=== PATIENT | male | born 1985 | race Caucasian/White ===

== ENCOUNTER → 2023-01-02 | Outpatient (CLI) | payer BC, SELFPAY ==
[2023-01-02 22:17] LABS: Absolute Lymphocyte Count 2.11 X10^3/uL (0.83-4.51); Absolute Neutrophil Count 4.1 X10^3/uL (2.0-7.7); Basophil# 0.07 X10^3/uL; Eosinophil# 0.15 X10^3/uL; Eosinophils% 2.1 % (0-5); Hematocrit 44.6 % (40-54); Hemoglobin 14.9 g/dL (13.0-16.5); Lymphocyte # 2.11 X10^3/ul (0.83-4.51); Lymphocyte % 29.8 % (19-41); Mean Corp Hgb Conc 33.4 g/dL (32-36); Mean Corpuscular Volume 89.9 fL (80-94); Mean Platelet Vol. 10.2 fl (6.2-12.0); Monocyte# 0.63 X10^3/uL; Monocyte% 8.9 % (0-10); NRBC Flagged by Analyzer 0 % (0-5); Neutrophil # 4.11 X10^3/uL (2.7-7.7); Neutrophil % 57.9 % (47-70); Platelet Count 276 K/mm3 (150-450); RBC Distribution Width SD 38.7 fl (35.1-43.9); Red Blood Count 4.96 M/mm3 (4.6-6.2); White Blood Count 7.1 K/mm3 (4.4-11.0)
[2023-01-02 22:40] LABS: ALB/GLOB Ratio 1.3 RATIO (0.9-2.4); AST(SGOT) 25 U/L (15-37); Alanine Aminotransfer ALT/SGPT 28 U/L (16-61); Albumin, Serum 4.2 g/dL (3.2-5.0); Alkaline Phosphatase 76 U/L (45-117); Anion Gap 7 (5-15); BUN 24 mg/dL (7-18); BUN/Creat Ratio 23.3 RATIO (10-20); Calcium,Total 9.1 mg/dL (8.5-10.1); Chloride 106 mmol/L (98-107); Cholesterol 193 mg/dL (200); Creatinine, Serum 1.03 mg/dL (0.70-1.30); EST Glomerular Filtration Rate 87 mL/min (>60); Est Glom Filt Rate - Afr Amer 105 mL/min (>60); Globulin 3.3 g/dL (2.2-4.2); Glucose 82 mg/dL (74-106); High Density Lipoprotein 78 mg/dL; Potassium 3.7 mmol/L (3.5-5.1); Protein, Total 7.5 g/dL (6.4-8.2); Sodium Level 139 mmol/L (136-145); Thyroid Stim Hormone (TSH) 1.41 uIU/mL (0.358-3.74); Triglycerides 60 mg/dL; Very Low Density Lipoprotein 12 mg/dL (5-40)
[2023-01-02 22:42] LABS: Hemoglobin A1c 5.3 % (3.8-5.6)
== END | disposition home or self-care (01) ==
PROVIDERS: Visit Provider Nurse Practitioner
DX: E78.5 Hyperlipidemia, unspecified (principal); R43.8 Other disturbances of smell and taste; R73.9 Hyperglycemia, unspecified
CPT/HCPCS: 80053; 80061; 83036; 84443; 85025

== ENCOUNTER → 2024-12-23 | Outpatient (CLI) | payer BC, SELFPAY ==
--- OUTSIDE RECORDS SUMMARY | 2024-12-23 23:16 | XMS RPT_ITS | CCD ---
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 Role Phone Unavailable Primary Care Provider Leroy Flores Primary Care Provider BEENA HADDAD Attending Unavailable BEENA HADDAD Referring Unavailable LEROY TEJEDA Primary Care Unavailable LEROY TEJEDA Primary Care Unavailable BEENA HADDAD Attending Unavailable Donte PEDRAZA, Mary Attending Unavailable Bozena Heath DO Primary Care Provider BOZENA HEATH Primary Care BOZENA Torres Attending UnavailBOZENA Fleming Primary Care Unavailharis reis Medications Current Medications Medication Drug Class(es) Dates Sig (Normalized) Sig (Original) dexamethasone 6 mg oral tablet (3 sources) Corticosteroid Start: 12-24-2021 take 1 tablet by mouth three times daily dexAMETHasone (Decadron) 6 MG tablet Take 6 mg by mouth 3 times daily. 0 12/24/2021 Active tiZANidine 2 mg oral tablet (1 source) Central alpha-2 Adrenergic Agonist Start: 03-06-2023 End: 04-24-2023 take 1 tablet by mouth twice daily as needed for muscle spasms tiZANidine (Zanaflex) 2 mg tablet Take 1 tablet (2 mg) by mouth 2 times a day as needed for muscle spasms. 0 03/06/2023 04/24/2023 Discontinued (Med List Cleanup) Completed/Discontinued Medications Medication Drug Class(es) Dates Sig (Normalized) Sig (Original) ascorbic acid 500 mg oral tablet (1 source) Vitamin C Start: 09-28-2014 take 1 tablet by mouth once daily ascorbic acid (VITAMIN C) 500 mg tablet Take 1 tablet by mouth once daily. 0 09/28/2014 Active Comment on above: Take 1 tablet by colette once daily. Problems Active Problems Problem Classification Problem Date Documented Da te Episodic/Chronic Administrative/social admission (1 source) Patient encounter status; Translations: [Persons encountering health services in other specified circumstances] 04-23-2023 Episodic Disorders of lipid metabolism (1 source) Hyperlipidemia, unspecified; Translations: [Hyperlipidemia, unspecified] Onset: 01-08-2023 Chronic Other nervous system disorders (2 sources) Other chronic pain; Translations: [Other chronic pain] Onset: 04-24-2023 Chronic Other nutritional; endocrine; and metabolic disorders (1 source) Overweight in adulthood with body mass index of 25 or more but less than 30; Translations: [Overweight] 04-24-2023 Episodic Spondylosis; intervertebral disc disorders; other back problems (9 sources) Radicular pain; Translations: [Radiculopathy, site unspecified] Onset: 10-03-2014 10-03-2014 Episodic Unclassified (2 sources) Low back pain, unspecified; Translations: [Low back pain, unspecified] Onset: 12-03-2022 Past or Other Problems Problem Classification Problem Date Documented Da te Episodic/Chronic Other acquired deformities (3 sources) Spondylolysis; Translations: [Spondylolysis, lumbar region] Onset: 10-03-2014 07-16-2021 Episodic Other liver diseases (3 sources) Finding of creatine kinase level; Translations: [Abnormal levels of other serum enzymes] Onset: 10-03-2014 10-03-2014 Episodic Other screening for suspected conditions (not mental disorders or infectious disease) (3 sources) Decreased testosterone level ; Translations: [Other specified abnormal findings of blood chemistry] Onset: 12-07-2014 07-16-2021 Episodic Otitis media and related conditions (3 sources) Dysfunction of eustachian tube; Translations: [Unspecified Eustachian tube disorder, unspecified ear] Onset: 04-24-2023 04-24-2023 Episodic Unclassified (2 sources) Low back pain, unspecified; Translations: [Low back pain, unspecified] Onset: 12-03-2022 Results Test Name Value Interpretation Reference Range Facil ity CBC panel Auto (Bld)on 04-24 Erythrocyte distribution width (RBC) [Ratio] 12.8 % Normal 11.5-14.5 [facility] Comment on above: Performed By: #### 5 8410-2 #### YUDITH Mulligan ([id number]) [facility] ([facility]) [id number] [place] [address] 42059 Hematocrit (Bld) [Volume fraction] 47.0 % Normal 41.0-52.0 [facility] Comment on above: Performed By: #### 5 8410-2 #### YUDITH Mulligan ([id number]) [facility] ([facility]) [id number] [place] [address] 69105 Hemoglobin (Bld) [Mass/Vol] 14.9 g/dL Normal 13.5-17.5 [facility] Comment on above: Performed By: #### 5 8410-2 #### YUDITH Mulligan ([id number]) [facility] ([facility]) [address] [place] [address] 10604 MCH (RBC) [Entitic mass] 29.3 pg Normal 26.0-34.0 [facility] Comment on above: Performed By: #### 5 8410-2 #### YUDITH Mulligan ([id number]) [facility] ([facility]) [address] [place] [address] 76673 MCHC (RBC) [Mass/Vol] 31.7 g/dL Low 32.0-36.0 [facility] Comment on above: Performed By: #### 5 8410-2 #### YUDITH Mulligan ([id number]) [facility] ([facility]) [address] [place] [address] 36642 MCV (RBC) [Entitic vol] 93 fL Normal 80-100 [facility] Comment on above: Performed By: #### 5 8410-2 #### YUDITH Mulligan ([id number]) [facility] ([facility]) [address] [place] [address] 10186 Nucleated RBC/100 WBC (Bld) [Ratio] 0.0 /100 WBCs Normal 0.0-0.0 [facility] Comment on above: Performed By: #### 5 8410-2 #### YUDITH Mulligan ([id number]) [facility] ([facility]) [address] [place] [address] Platelet mean volume (Bld) [Entitic vol] 10.2 fL Normal 7.5-11.5 [facility] Comment on above: Performed By: #### 5 8410-2 #### YUDITH Mulligan ([id number]) [facility] ([facility]) [address] [place] [address] 62151 Platelets (Bld) [#/Vol] 236 x10*3/uL Normal 150-450 [facility] Comment on above: Performed By: #### 5 8410-2 #### YUDITH Mulligan ([id number]) [facility] ([facility]) [address] [place] [address] 23406 RBC (Bld) [#/Vol] 5.08 x10*6/uL Normal 4.50-5.90 [facility] Comment on above: Performed By: #### 5 8410-2 #### YUDITH Mulligan ([id number]) [facility] ([facility]) [address] [place] [address] 89022 WBC (Bld) [#/Vol] 5.2 x10*3/uL Normal 4.4-11.3 [facility] Comment on above: Performed By: #### 5 8410-2 #### YUDITH Mulligan ([id number]) [facility] ([facility]) [address] [place] [address] 37613 Comprehensive metabolic 2000 panelon 04-24-2023 Albumin BCP dye [Mass/Vol] 4.6 g/dL Normal 3.4-5.0 [facility] Comment on above: Performed By: #### 2 4323-8 #### YUDITH Mulligan ([id number]) [facility] ([facility]) [address] [place] [address] ALP [Catalytic activity/Vol] 78 U/L Normal 33-120 [facility] Comment on above: Performed By: #### 2 4323-8 #### YUDITH Mulligan ([id number]) [facility] ([facility]) [address] [place] [address] 11314 ALT With P-5'-P [Catalytic activity/Vol] 21 U/L Normal 10-52 [facility] Comment on above: Result Comment: Roxanne ents treated with Sulfasalazine may generate falsely decreased results for ALT. Performed By: #### 2 4323-8 #### YUDITH Mulligan ([id number]) [facility] ([facility]) [address] [place] [address] Anion gap [Moles/Vol] 13 mmol/L Normal 10-20 [facility] Comment on above: Performed By: #### 2 4323-8 #### YUDITH Mulligan ([id number]) [facility] ([facility]) [address] [place] [address] AST With P-5'-P [Catalytic activity/Vol] 18 U/L Normal 9-39 [facility] Comment on above: Performed By: #### 2 4323-8 #### YUDITH Mulligan ([id number]) [facility] ([facility]) [address] [place] [address] Bilirubin [Mass/Vol] 0.5 mg/dL Normal 0.0-1.2 [facility] Comment on above: Performed By: #### 2 4323-8 #### YUDITH Mulligan ([id number]) [facility] ([facility]) [address] [place] [address] 96095 Calcium [Mass/Vol] 9.6 mg/dL Normal 8.6-10.6 [facility] Comment on above: Performed By: #### 2 4323-8 #### YUDITH Mulligan ([id number]) [facility] ([facility]) [address] [place] [address] Chloride [Moles/Vol] 103 mmol/L Normal 98-107 [facility] Comment on above: Performed By: #### 2 4323-8 #### YUDITH Mulligan ([id number]) [facility] ([facility]) [address] [place] [address] CO2 [Moles/Vol] 29 mmol/L Normal 21-32 [facility] Comment on above: Performed By: #### 2 4323-8 #### YUDITH Mulligan ([id number]) [facility] ([facility]) [address] [place] [address] Creatinine [Mass/Vol] 0.89 mg/dL Normal 0.50-1.30 [facility] Comment on above: Performed By: #### 2 4323-8 #### YUDITH Mulligan ([id number]) [facility] ([facility]) [address] [place] [address] 78706 GFR/1.73 sq M.predicted MDRD (S/P/Bld) [Vol rate/Area] mL/min/{1.73_m2} Normal >60 [facility] Comment on above: Result Comment: Calc ulations of estimated GFR are performed using the 2020 CKD-EPI Study Refit equation without the race variable for the IDMS-Traceable creatinine methods. https://jasn.asnjournals.org/content//ASN.95673778 88 Performed By: #### 2 4323-8 #### YUDITH Mulligan ([id number]) [facility] ([facility]) [address] [place] [address] 89574 Glucose [Mass/Vol] 91 mg/dL Normal 74-99 [facility] Comment on above: Performed By: #### 2 4323-8 #### YUDITH Mulligan ([id number]) [facility] ([facility]) [address] [place] [address] 64784 Potassium [Moles/Vol] 4.2 mmol/L Normal 3.5-5.3 [facility] Comment on above: Performed By: #### 2 4323-8 #### YUDITH Mulligan ([id number]) [facility] ([facility]) [address] [place] [address] 55710 Protein [Mass/Vol] 7.2 g/dL Normal 6.4-8.2 [facility] Comment on above: Performed By: #### 2 4323-8 #### YUDITH Mulligan ([id number]) [facility] ([facility]) [address] [place] [address] Sodium [Moles/Vol] 141 mmol/L Normal 136-145 [facility] Comment on above: Performed By: #### 2 4323-8 #### YUDITH Mulligan ([id number]) [facility] ([facility]) [address] [place] [address] Urea nitrogen [Mass/Vol] 20 mg/dL Normal 6-23 [facility] Comment on above: Performed By: #### 2 4323-8 #### YUDITH Mulligan ([id number]) [facility] ([facility]) [address] [place] [address] 36098 Lipid 1996 panelon 3 Cholesterol [Mass/Vol] 200 mg/dL High 0-199 [facility] Comment on above: Result Comment: Age Desirable Borderline High High 0-19 Y 0 - 169 170 - 199 >/= 200 20-24 Y 0 - 189 190 - 224 >/= 225 >24 Y 0 - 199 200 - 239 >/= 240 All ranges are based on fasting samples. Specific therapeutic targets will vary based on patient-specific cardiac risk. Pediatric guidelines reference:Pediatrics 2011, 128(S5).Adult guidelines reference: NCEP ATPIII Guidelines,ROSIBEL 2001, 258:2486-97 Venipuncture immediately after or during the administration of Metamizole may lead to falsely low results. Testing should be performed immediately prior to Metamizole dosing. Performed By: #### 2 4331-1 #### YUDITH Mulligan ([id number]) [facility] ([facility]) [address] [place] [address] 58579 Cholesterol in HDL [Mass/Vol] 62.4 mg/dL Normal [facility] Comment on above: Result Comment: Age Very Low Low Normal High 0-19 Y < 35 < 40 40-45 ---- 20-24 Y ---- < 40 >45 ---- >24 Y ---- < 40 40-60 >60 Performed By: #### 2 4331-1 #### YUDITH Mulligan ([id number]) [facility] ([facility]) [address] [place] [address] Cholesterol in LDL [Mass/Vol] 123 mg/dL Low 130-180 [facility] Comment on above: Result Comment: Near Borderline AGE Desirable Optimal High High Very High 0-19 Y 0 - 109 --- 110-129 >/= 130 ---- 20-24 Y 0 - 119 --- 120-159 >/= 160 ---- >24 Y 0 - 99 100-129 130-159 160-189 >/=190 Performed By: #### 2 4331-1 #### YUDITH Mulligan ([id number]) [facility] ([facility]) [id number] [place] [address] 07786 Cholesterol in VLDL [Mass/Vol] 14 mg/dL Normal 0-40 [facility] Comment on above: Performed By: #### 2 4331-1 #### YUDITH Mulligan ([id number]) [facility] ([facility]) [address] [place] [address] 52863 CHOLESTEROL/HDL RATIO 3.2 Normal [facility] Comment on above: Result Comment: Ref Values Desirable < 3.4 High Risk > 5.0 Performed By: #### 2 4331-1 #### YUDITH Mulligan ([id number]) [facility] ([facility]) [address] [place] [address] 48318 NON HDL CHOLESTEROL 138 mg/dL Normal 0-149 [facility] Comment on above: Result Comment: Age Desirable Borderline High High Very High 0-19 Y 0 - 119 120 - 144 >/= 145 >/= 160 20-24 Y 0 - 149 150 - 189 >/= 190 ---- >24 Y 30 mg/dL above LDL Cholesterol goal Performed By: #### 2 4331-1 #### YUDITH Mulligan ([id number]) [facility] ([facility]) [address] [place] [address] 98632 Triglyceride [Mass/Vol] 71 mg/dL Normal 0-149 [facility] Comment on above: Result Comment: Age Desirable Borderline High High Very High 0 D-90 D 19 - 174 ---- ---- ---- 91 D- 9 Y 0 - 74 75 - 99 >/= 100 ---- 10-19 Y 0 - 89 90 - 129 >/= 130 ---- 20-24 Y 0 - 114 115 - 149 >/= 150 ---- >24 Y 0 - 149 150 - 199 200- 499 >/= 500 Venipuncture immediately after or during the administration of Metamizole may lead to falsely low results. Testing should be performed immediately prior to Metamizole dosing. Performed By: #### 2 4331-1 #### YUDITH Mulligan ([id number]) [facility] ([facility]) [address] [place] [address] CBC W/Diff, Automatedon 12-19 Absolute Lymph 2.11 X10 3/uL Normal 0.83-4.51 [facility] Comment on above: Performed By: #### L 501.9520, L500.4050, L500.4100, L100.0100, L501.9985 #### [facility] [address] [place], [address] Absolute Neut 4.1 X10 3/uL Normal 2.0-7.7 [facility] Comment on above: Performed By: #### L 501.9520, L500.4050, L500.4100, L100.0100, L501.9985 #### [facility] [address] [place], [address] Basophils/100 WBC (Bld) 1.0 % Normal 0-1 [facility] Comment on above: Performed By: #### L 501.9520, L500.4050, L500.4100, L100.0100, L501.9985 #### [facility] [address] [place], [address] Eosinophils/100 WBC (Bld) 2.1 % Normal 0-5 [facility] Comment on above: Performed By: #### L 501.9520, L500.4050, L500.4100, L100.0100, L501.9985 #### [facility] [address] [place], [address] Erythrocyte distribution width (RBC) [Ratio] 12.0 % Normal 11.6-14.6 [facility] Comment on above: Performed By: #### L 501.9520, L500.4050, L500.4100, L100.0100, L501.9985 #### [facility] [address] [place], [address] Hematocrit (Bld) [Volume fraction] 44.6 % Normal 40-54 [facility] Comment on above: Performed By: #### L 501.9520, L500.4050, L500.4100, L100.0100, L501.9985 #### [facility] [address] [place], [address] Hemoglobin (Bld) [Mass/Vol] 14.9 g/dL Normal 13.0-16.5 [facility] Comment on above: Performed By: #### L 501.9520, L500.4050, L500.4100, L100.0100, L501.9985 #### [facility] [address] [place], [address] IG% 0.300 Normal 0.0-0.9 [facility] Comment on above: Result Comment: IG% - Immature Granulocytes (promyelocytes, myelocytes and metamyelocytes) > 1% indicates that a LEFT SHIFT is Present. Performed By: #### L 501.9520, L500.4050, L500.4100, L100.0100, L501.9985 #### [facility] [address] [place], [address] Lymphocytes/100 WBC (Bld) 29.8 % Normal 19-41 [facility] Comment on above: Performed By: #### L 501.9520, L500.4050, L500.4100, L100.0100, L501.9985 #### [facility] [address] [place], [address] MCH (RBC) [Entitic mass] 30.0 pg Normal 27.0-32.0 [facility] Comment on above: Performed By: #### L 501.9520, L500.4050, L500.4100, L100.0100, L501.9985 #### [facility] [address] [place], [address] MCHC (RBC) [Mass/Vol] 33.4 g/dL Normal 32-36 [facility] Comment on above: Performed By: #### L 501.9520, L500.4050, L500.4100, L100.0100, L501.9985 #### [facility] [address], [address] MCV (RBC) [Entitic vol] 89.9 fL Normal 80-94 [facility] Comment on above: Performed By: #### L 501.9520, L500.4050, L500.4100, L100.0100, L501.9985 #### [facility] [address] [place], [address] Monocytes/100 WBC (Bld) 8.9 % Normal 0-10 [facility] Comment on above: Performed By: #### L 501.9520, L500.4050, L500.4100, L100.0100, L501.9985 #### [facility] [address] [place], [address] Neutrophils/100 WBC (Bld) 57.9 % Normal 47-70 [facility] Comment on above: Performed By: #### L 501.9520, L500.4050, L500.4100, L100.0100, L501.9985 #### [facility] [address] [place], [address] Nucleated RBC (Bld) [#/Vol] 0 10*3/uL Normal 0-5 [facility] Comment on above: Performed By: #### L 501.9520, L500.4050, L500.4100, L100.0100, L501.9985 #### [facility] [address] [place], [address] Platelet mean volume (Bld) [Entitic vol] 10.2 fL Normal 6.2-12.0 [facility] Comment on above: Performed By: #### L 501.9520, L500.4050, L500.4100, L100.0100, L501.9985 #### [facility] [address] [place], [address] Platelets (Bld) [#/Vol] 276 10*3/uL Normal 150-450 [facility] Comment on above: Performed By: #### L 501.9520, L500.4050, L500.4100, L100.0100, L501.9985 #### [facility] [address] [place], [address] RBC (Bld) [#/Vol] 4.96 10*6/uL Normal 4.6-6.2 [facility] Comment on above: Performed By: #### L 501.9520, L500.4050, L500.4100, L100.0100, L501.9985 #### [facility] [address] [place], [address] RDW SD 38.7 fl Normal 35.1-43.9 [facility] Comment on above: Performed By: #### L 501.9520, L500.4050, L500.4100, L100.0100, L501.9985 #### [facility] [address] [place], [address] WBC (Bld) [#/Vol] 7.1 10*3/uL Normal 4.4-11.0 [facility] Comment on above: Performed By: #### L 501.9520, L500.4050, L500.4100, L100.0100, L501.9985 #### [facility] [address] [place], [address] Comprehensive Metabolic Prof ilon 01-03-2023 Albumin [Mass/Vol] 4.2 g/dL Normal 3.2-5.0 [facility] Comment on above: Performed By: #### L 501.9520, L500.4050, L500.4100, L100.0100, L501.9985 #### [facility] [address] [place], [address] Albumin/Globulin [Mass ratio] 1.3 {ratio} Normal 0.9-2.4 [facility] Comment on above: Performed By: #### L 501.9520, L500.4050, L500.4100, L100.0100, L501.9985 #### [facility] [address] [place], [address] ALK P 76 U/L Normal 45-117 [facility] Comment on above: Performed By: #### L 501.9520, L500.4050, L500.4100, L100.0100, L501.9985 #### [facility] [address] [place], [address] ALT [Catalytic activity/Vol] 28 U/L Normal 16-61 [facility] Comment on above: Performed By: #### L 501.9520, L500.4050, L500.4100, L100.0100, L501.9985 #### [facility] [address] [place], [address] AST [Catalytic activity/Vol] 25 U/L Normal 15-37 [facility] Comment on above: Performed By: #### L 501.9520, L500.4050, L500.4100, L100.0100, L501.9985 #### [facility] [address] [place], [address] Bilirubin [Mass/Vol] 0.60 mg/dL Normal 0.20-1.00 [facility] Comment on above: Result Comment: For patients on eltrombopag therapy, use of Dimension [place] TBIL is not recommended. Performed By: #### L 501.9520, L500.4050, L500.4100, L100.0100, L501.9985 #### [facility] [address] [place], [address] BUN/CRE 23.3 RATIO High 10-20 [facility] Comment on above: Performed By: #### L 501.9520, L500.4050, L500.4100, L100.0100, L501.9985 #### [facility] [address] [place], [address] CA,Total 9.1 mg/dL Normal 8.5-10.1 [facility] Comment on above: Performed By: #### L 501.9520, L500.4050, L500.4100, L100.0100, L501.9985 #### [facility] [address] [place], [address] Chloride [Moles/Vol] 106 mmol/L Normal 98-107 [facility] Comment on above: Performed By: #### L 501.9520, L500.4050, L500.4100, L100.0100, L501.9985 #### [facility] [address] [place], [address] CO2 [Moles/Vol] 26.0 mmol/L Normal 21.0-32.0 [facility] Comment on above: Performed By: #### L 501.9520, L500.4050, L500.4100, L100.0100, L501.9985 #### [facility] [address] [place], [address] Creatinine [Mass/Vol] 1.03 mg/dL Normal 0.70-1.30 [facility] Comment on above: Result Comment: The validity of the calculated GFR GFRAA in patients over 70 years has not been determined. Clinical correlation is essential. Performed By: #### L 501.9520, L500.4050, L500.4100, L100.0100, L501.9985 #### [facility] [address] [place], [address] EST GFR - AA 105 mL/min Normal >60 [facility] Comment on above: Result Comment: Afri can [place] GFR Calc Performed By: #### L 501.9520, L500.4050, L500.4100, L100.0100, L501.9985 #### [facility] [address] [place], [address] GAP 7 Normal 5-15 [facility] Comment on above: Performed By: #### L 501.9520, L500.4050, L500.4100, L100.0100, L501.9985 #### [facility] [address] [place], [address] GFR/1.73 sq M.predicted among non-blacks MDRD (S/P/Bld) [Vol rate/Area] 87 mL/min/{1.73_m2} Normal >60 [facility] Comment on above: Result Comment: Non- GFR Calc Performed By: #### L 501.9520, L500.4050, L500.4100, L100.0100, L501.9985 #### [facility] [address] [place], [address] Globulin (S) [Mass/Vol] 3.3 g/dL Normal 2.2-4.2 [facility] Comment on above: Performed By: #### L 501.9520, L500.4050, L500.4100, L100.0100, L501.9985 #### [facility] [address] [place], [address] Glucose [Mass/Vol] 82 mg/dL Normal 74-106 [facility] Comment on above: Performed By: #### L 501.9520, L500.4050, L500.4100, L100.0100, L501.9985 #### [facility] [address] [place], [address] Potassium [Moles/Vol] 3.7 mmol/L Normal 3.5-5.1 [facility] Comment on above: Performed By: #### L 501.9520, L500.4050, L500.4100, L100.0100, L501.9985 #### [facility] [address] [place], [address] Sodium [Moles/Vol] 139 mmol/L Normal 136-145 [facility] Comment on above: Performed By: #### L 501.9520, L500.4050, L500.4100, L100.0100, L501.9985 #### [facility] [address] [place], [address] T PROT 7.5 g/dL Normal 6.4-8.2 [facility] Comment on above: Performed By: #### L 501.9520, L500.4050, L500.4100, L100.0100, L501.9985 #### [facility] [address] [place], [address] Urea nitrogen [Mass/Vol] 24 mg/dL High 7-18 [facility] Comment on above: Performed By: #### L 501.9520, L500.4050, L500.4100, L100.0100, L501.9985 #### [facility] [address] [place], [address] Hemoglobin A1con 01-03-2023 HbA1c (Bld) [Mass fraction] 5.3 % Normal 3.8-5.6 [facility] Comment on above: Result Comment: Norm al < 5.7 % Prediabetic 5.7 - 6.4 % Diabetic >or= 6.5 % Please note range changes. Performed By: #### L 501.9520, L500.4050, L500.4100, L100.0100, L501.9985 #### [facility] [address] [place], [address] Lipid Profileon 01-03-2023 Cholesterol [Mass/Vol] 193 mg/dL Normal 200 [facility] Comment on above: Result Comment: <200 mg/dL Desirable 200-240 mg/dL Borderline >240 mg/dL High Risk Performed By: #### L 501.9520, L500.4050, L500.4100, L100.0100, L501.9985 #### [facility] [address] [place], [address] Cholesterol in HDL [Mass/Vol] 78 mg/dL Normal [facility] Comment on above: Result Comment: The drugs N-Acetylcysteine and Metamizole may falsely depress this assay. Reference Range HDL <40 mg/dL Low HDL Cholesterol HDL >or= 60 mg/dL High HDL Cholesterol Performed By: #### L 501.9520, L500.4050, L500.4100, L100.0100, L501.9985 #### [facility] [address] [place], [address] Cholesterol in LDL [Mass/Vol] 103 mg/dL Normal 0-130 [facility] Comment on above: Performed By: #### L 501.9520, L500.4050, L500.4100, L100.0100, L501.9985 #### [facility] [address] [place], [address] Cholesterol in VLDL [Mass/Vol] 12 mg/dL Normal 5-40 [facility] Comment on above: Performed By: #### L 501.9520, L500.4050, L500.4100, L100.0100, L501.9985 #### [facility] [address] [place], [place], [address] Triglyceride [Mass/Vol] 60 mg/dL Normal [facility] Comment on above: Result Comment: The drugs N-Acetylcysteine and Metamizole may falsely depress this assay. Serum Triglycerides Reference Interval Normal <150 mg/dL Borderline high 150 - 199 mg/dL High 200 - 499 mg/dL Very High > or = 500 mg/dL Performed By: #### L 501.9520, L500.4050, L500.4100, L100.0100, L501.9985 #### [facility] [address] [place], [place], [address] Thyroid Stim Hormone (TSH)on 01-03-2023 TSH 1.41 uIU/mL Normal 0.358-3.74 [facility] Comment on above: Performed By: #### L 501.9520, L500.4050, L500.4100, L100.0100, L501.9985 #### [facility] [address] [place], [place], [address] 36on 12-23-2022 36 Called and spoke with the patient directly. I told him Dr. Haddad is unable to order a MRI at this time because he knows it would not be approved without him completing the 6 weeks of therapy. He said even though it has been going on since May. I told him insurance go a length of conservative treatment not length the symptoms. Patient understood. [facility] 12-20-2022 36 Agree, insurances recently have been getting harder and harder to get them to authorize the MRI. Nerve root weakness and tumor are about the only exceptions. Continue with PT plan. [facility] 12-19-2022 36 Called and spoke with the patient directly. He states he has increase in low back pain with therapy, I did confirm that he has completed 4 sessions of therapy. I told him that most insurances require 6 weeks of therapy prior to ordering an MRI. He wants Dr. Haddad to order the MRI anyways because he is in so much pain. I told him there is a good the MRI will be denial due to lack of therapy. The patient understood. I told him Dr. Haddad is out of the office for the rest of today. Normal [facility] 36 Pt calling due to pain worsening despite going to PT. His PT recommended he may need further imaging. Please advise. Normal [facility] Office Visiton 12-03-2022 Follow-up visit [id number] Dashawn Olson 1985 M Date Provider Department Center 12/03/2022 [id number] HADDDA MG SM WAD None No family history on file Level of Service:28689 [place] OFFICE/OUTPATIENT NEW LOW MDM 30-44 MINUTES Reason for Visit and Comments: New Patient [542] Back Pain [12] - Lower Normal [facility] Progress Noteon 12-03-2022 Progress Note [facility] [address] [place] [address] Dept: [phone] Dept Chief Complaint Patient presents with New Patient Back Pain Lower Subjective History of Present Illness: Dashawn Olson is a 37 y.o. male who presents today for evaluation of back pain. Location: lower back Onset: since 2014 broke his L5 it was doing better up until May 2022 Injury: yes - broke his L5 . Work related? no Quality: aching, sharp, shooting, and stabbing Radiation of symptoms: yes - down his left leg Severity: 2/10 at rest and 8/10 at worst Exacerbating factor(s): bending forward Relieving factor(s): stretches help sometimes Timing: intermittently Low back red flags: Metastatic cancer: No Recent trauma: No Bowel or bladder incontinence: No Urinary retention: No Progressive lower extremity weakness or sensory loss: No Saddle anesthesia: No Spinal surgery in the last year: No IV drug abuse: No Unexplained weight loss: No Immunosuppression: No Chronic steroid use: No Fevers, chills, nights sweats: No Unremitting/rest pain: No Imaging to date: X-ray November 2022 Treatment to date: PT/OT/HEP: no But does home stretches Ice: no Heat: yes, helpful Medications: Tylenol: no NSAIDs: Ibuprofen PRN Oral steroids: no Muscle relaxants: no Nerve medications: no Targeted injections: none Assistive devices: none Prior surgery: no Occupation: sales account coordinator, Fall risk assessment: Less than 65, not applicable Objective There were no vitals taken for this visit. Physical Exam: General: Alert, well appearing, no acute distress. Respiratory: Breathing comfortably on room air. No respiratory distress. Skin: Warm, dry, intact. No visible rashes or erythema overlying area of focused exam. Physical Exam Musculoskeletal: Lumbar back: No swelling, deformity, spasms, tenderness or bony tenderness. Negative right straight leg raise test and negative left straight leg raise test. Comments: Strength Testing Hip Flexors (T12-L3) normal strength bilateral, no weakness Quad (L2-L4) normal strength bilateral, no weakness Tibialis Anterior (L4) normal strength bilateral, no weakness Extensor Hallusis Longus (L5) normal strength bilateral, no weakness Peroneus Longus (S1) normal strength bilateral, no weakness Gastroc (S1) normal strength bilateral, no weakness Sensation Testing Lateral Thigh (L1-L2) intact to light touch bilateral, no paresthesia Medial Knee (L3) intact to light touch bilateral, no paresthesia Medial Calf, Medial Foot (L4) intact to light touch bilateral, no paresthesia Lateral Calf, 1st web space (L5) intact to light touch bilateral, no paresthesia Lateral Foot (S1) intact to light touch bilateral, no paresthesia Reflexes Patella (L4) 2+ equal bilaterally Achilles (S1) 2+ equal bilaterally External Notes None available Labs No results found for: HGBA1C No results found for: CREATININE Imaging Images reviewed with patient today I have personally reviewed the images pertinent to the appointment today EMG/NCT N/A Procedure No procedures completed today Assessment Diagnosis Plan 1. Lumbar pain XR lumbar spine 4-5 view Ambulatory referral to Physical Therapy 2. Lumbar radiculitis Ambulatory referral to Physical Therapy Plan Today we discussed the treatment spectrum of this illness/condition. From no change in treatment, to conservative treatments, to aggressive treatments including injections and surgery, and answered questions. We have today selected to proceed with formal physical therapy. Physical therapy will work on muscle range of motion, efficiency, endurance, strength, coordination ,balance and sequencing of neuro-muscular contractions. Physical therapy will set up the schedule of your visits, how many times a week, and will indicate when follow-up is appropriate. If the current course does not prove to be effective over the short term future, schedule a follow-up appointment to discuss and select an alternate course of therapy including possibly of injection, further imaging or surgical referral. No follow-ups on file. Beena Haddad MD 12/03/2022 8:53 AM Please note that portions of this note may have been completed with voice recognition software. Documentation reviewed prior to signing but minor errors in iron handler may have occurred. Answers submitted by the patient for this visit: Back Pain Questionnaire (Submitted on 12/02/2022) Chief Complaint: Back pain Chronicity: recurrent Onset: more than 1 month ago Frequency: intermittently Pain location: lumbar spine, sacro-iliac Pain quality: aching, shooting Radiates to: left thigh Pain - numeric: 4/10 Pain is: worse during the day Aggravated by: sitting Stiffness is present: in the morning abdominal pain: No bladder incontinence: No bowel incontinence: No chest (more content not included)... [facility] 10-11-2022 [facility] Telephone (FAMPWS) DASHAWN OLSON ([id number]) 1985 M Date Time Provider Department 10/11[facility]22 [facility] During your visit today, we recorded the following information about you: Sudha Sneed 10/11/2022 2:59 PM Signed Pt wanting to reestablish care with Dr. Iraheta. Has not been seen since 2014. Please advise pt either way. Leonela Garner MA 10/14/2022 9:37 AM Signed Left detailed message for patient that provider's practice is closed and no longer accepting new patient's. Leonela Garner MA Allergies As of Date: 10/11/2022 (No Known Allergies) Date Reviewed: 12/07/2014 Reviewed by: Lamberto Iraheta - Fully Assessed Reason for Visit: Patient Question [1477] Prescriptions as of 10/14/2022 - ascorbic acid (VITAMIN C) 500 mg tablet Take 1 tablet by mouth once daily. 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] 10/03/2014 Radicular leg pain [M54.10] 10/03/2014 Abnormal CK [R74.8] 10/03/2014 Lumbago [M54.50] 10/03/2014 Well adult exam [Z00.00] 12/07/2014 Low testosterone [R79.89] 12/07/2014 Encounter Status:Closed by LEONELA GARNER on 10/14/22 Normal [facility] Vital Signs Date Time Vital Sign Value Performing Clinician Facility 07-17-2024 08:24-0500 Body height 179.1 cm Bozena Heath DO Work Phone: [facility] 07-17-2024 08:24-0500 Body mass index (BMI) [Ratio] 29.1 kg/m2 Bozena Heath DO Work Phone: [facility] 07-17-2024 08:24-0500 Body temperature 97.59 [degF] Bozena Heath DO Work Phone: [facility] 07-17-2024 08:24-0500 Body weight 93.31 kg Bozena Heath DO Work Phone: [facility] 07-17-2024 08:24-0500 Diastolic blood pressure 65 mm[Hg] Bozena Heath DO Work Phone: [facility] 07-17-2024 08:24-0500 Heart rate 70 /min Bozena Heath DO Work Phone: [facility] 07-17-2024 08:24-0500 Respiratory rate 16 /min Bozena Heath DO Work Phone: [facility] 07-17-2024 08:24-0500 SaO2% (BldA) [Mass fraction] 98 % Bozena Rajputtran DO Work Phone: [facility] 07-17-2024 08:24-0500 Systolic blood pressure 108 mm[Hg] Bozena Rajputtran DO Work Phone: [facility] 04-24-2023 08:31-0400 Body height 179.1 cm Bozena Rajputchayito DO Work Phone: [facility] 04-24-2023 08:31-0400 Body mass index (BMI) [Ratio] 26.51 kg/m2 Bozena Rajputchayito DO Work Phone: [facility] 04-24-2023 08:31-0400 Body temperature 97.59 [degF] Bozena Hermes Zaragoza DO Work Phone: [facility] 04-24-2023 08:31-0400 Body weight 85 kg Bozenaflaca Rajputchayito DO Work Phone: [facility] 04-24-2023 08:31-0400 Diastolic blood pressure 75 mm[Hg] Bozena Hermes Royalchayito DO Work Phone: [facility] 04-24-2023 08:31-0400 Heart rate 72 /min Bozenaflaca Heath DO Work Phone: [facility] 04-24-2023 08:31-0400 Respiratory rate 14 /min Bozena Hermes Royalchayito DO Work Phone: [facility] 04-24-2023 08:31-0400 SaO2% (BldA) [Mass fraction] 97 % Bozena Hermes Royalchayito DO Work Phone: [facility] 04-24-2023 08:31-0400 Systolic blood pressure 123 mm[Hg] Bozena Heath DO Work Phone: [facility] Encounters Encounter Date Encounter Type Care Provider Facility Start: 07-17-2024 End: 07-17-2024 Patient encounter status Bozena Heath DO Work Phone: [facility] Work Phone: Start: 07-17-2024 End: 07-17-2024 Periodic preventive med est patient 18-39 yrs Bozena Heath DO Work Phone: [facility] Comment on above[facility] Chronic low back pain, unspecified back pain laterality, unspecified whether sciatica present Start: 07-17-2024 End: 07-17-2024 ambulatory [facility] Start: 07-17-2024 End: 07-17-2024 Encounter for general adult medical examination without abnormal findings [facility] Ambulatory Start: 04-24-2023 End: 04-25-2023 ambulatory [facility] Start: 04-24-2023 End: 04-25-2023 Encounter for general adult medical examination without abnormal findings [facility] Start: 04-24-2023 Encounter for genera l adult medical examination without abnormal findings [facility] Ambulatory Start: 04-24-2023 End: 04-24-2023 Initial preventive medicine new pt age 18-39yrs Bozena Heath DO Work Phone: [facility] Comment on above: [facility] Healthcare maintenance; Overweight with body mass index (BMI) of 26 to 26.9 in adult; Dysfunction of Eustachian tube, unspecified laterality Start: 04-24-2023 End: 04-24-2023 Patient encounter status Bozena Williams Hermes Zaragoza DO Work Phone: [facility] Work Phone: Start: 01-02-2023 End: 01-03-2023 ambulatory Mary Kent NP Facility:[facility] Start: 12-19-2022 Telephone encounter Beena verma MD Work Phone: [facility] Clinical Communication Comment on above: Back Pain (Radiates BL LE's ) Start: 12-13-2022 Patient encounter procedure [facility] Provider [facility] Department Start: 12-03-2022 End: 05-17-2023 ambulatory [facility] Start: 12-07-2014 Patient encounter status [facility] Provider [facility] Work Phone: Procedures Date Procedure Procedure Detail Performing Clinician Start: 04-24-2023 CBC panel - Blood by Automated count BOZENA HEATH Start: 04-24-2023 Comprehensive metabo lic 2000 panel - Serum or Plasma BOZENA HEATH Start: 04-24-2023 Lipid panel BOZENA HEATH Start: 04-24-2023 Lipid 1996 panel - S naya or Plasma Bozena Heath DO Work Phone: Plan of Treatment Date Care Activity Detail Author Start: 2036 Zoster Vaccines (1 of 2) Zoste r Vaccines (1 of 2) [facility] Start: 04-24-2028 Lipid panel Lipid Panel [facility] Start: 01-17-2025 Influenza vaccination Influenza Vacc ine (#1) [facility] Comment on above: Postponed from 03/21 (Patient Refused) Start: 12-07-2024 DTaP/Tdap/Td Vaccine s (2 - Td or Tdap) DTaP/Tdap/Td Vaccines (2 - Td or Tdap) [facility] Start: 12-07-2024 Urine microalbumin profile DTAP,TDAP,TD (2 - Td or Tdap) [facility] Start: 07-17-2024 End: 07-17-2025 CBC panel - Blood by Automated count CBC Lab Routine Healthcare maintenance Expected: 07/17/2024, Expires: 07/17/2025 [facility] Work Phone: Comment on above: Expected: 07/17/2024 , Expires: 07/17/2025 Start: 07-17-2024 End: 07-17-2025 Comprehensive metabolic 2000 panel - Serum or Plasma Comprehensive Metabolic Panel Lab Routine Healthcare maintenance Expected: 07/17/2024, Expires: 07/17/2025 [facility] Work Phone: Comment on above: Expected: 07/17/2024 , Expires: 07/17/2025 Start: 07-17-2024 End: 07-17-2025 Lipid 1996 panel - Serum or Plasma Lipid Panel Lab Routine Healthcare maintenance Expected: 07/17/2024, Expires: 07/17/2025 [facility] Work Phone: Comment on above: Expected: 07/17/2024 , Expires: 07/17/2025 Start: 04-26-2024 COVID-19 Vaccine (#1) COVID-19 Vacci ne (#1) [facility] Comment on above: Postponed from 09/11 (Other Medical Reasons) Start: 04-26-2024 End: 04-26-2024 Patient encounter procedure 04/26/2024 8:30 AM EDT Office Visit [facility] [address] [place] [address] Bozena Heath DO [address] [facility] [address] [place], [place] [id number] [facility] Start: 04-25-2024 Yearly Adult Physical Yearly Adult P hysical [facility] Start: 03-21-2024 COVID-19 Vaccine ( season) COVID-19 Vaccine ( season) [facility] Start: 01-18-2024 Influenza vaccination Influenza Vacc ine (#1) [facility] Comment on above: Postponed from 03/21 (Patient Refused) Start: 04-24-2023 End: 04-24-2024 CBC panel - Blood by Automated count CBC Lab Routine Healthcare maintenance Expected: 04/24/2023 (Approximate), Expires: 04/24/2024 [facility] Service [facility] Work Phone: Comment on above: Expected: 04/24/2023 (Approximate), Expires: 04/24/2024 Start: 04-24-2023 End: 04-24-2024 Comprehensive metabolic 2000 panel - Serum or Plasma Comprehensive Metabolic Panel Lab Routine Healthcare maintenance Expected: 04/24/2023 (Approximate), Expires: 04/24/2024 [facility] Work Phone: Comment on above: Expected: 04/24/2023 (Approximate), Expires: 04/24/2024 Start: 04-24-2023 End: 04-24-2024 Lipid 1996 panel - Serum or Plasma Lipid Panel Lab Routine Healthcare maintenance Expected: 04/24/2023 (Approximate), Expires: 04/24/2024 [facility] Work Phone: Comment on above: Expected: 04/24/2023 (Approximate), Expires: 04/24/2024 Start: 03-21-2023 Influenza vaccination [facility] Start: 07-21-2022 DEPRESSION ASSESSMENT DEPRESSION ASS ESSMENT [facility] Start: 2021 LIPID SCREEN LIPID SCREEN [facility] Start: 2005 Hepatitis B Vaccines (1 of 3 - 19+ 3-dose series) Hepatitis B Vaccines (1 of 3 - 19+ 3-dose series) [facility] Start: 2004 Diabetes mellitus screening Diabetes Screening [facility] Start: 2004 Hepatitis C screening Hepatitis C Sc reening [facility] Start: 2004 HIV SCREENING HIV SCREENING [facility] Start: 1999 Varicella vaccination Varicell a Vaccines (1 of 2 - 13+ 2-dose series) [facility] Start: 1998 Depression Screening Depression Scre ening [facility] Start: 1987 MMR Vaccines (1 of 1 - Standard series) MMR Vaccines (1 of 1 - Standard series) [facility] Start: 1987 Varicella vaccination Varicell a Vaccines (1 of 2 - 2-dose childhood series) [facility] Start: 1986 COVID-19 VACCINE (#1) COVID-19 VACCI NE (#1) [facility] Start: 1986 HEPATITIS B (1 of 3 - 3-dose series) HEPATITIS B (1 of 3 - 3-dose series) [facility] Start: 1986 Hepatitis B Vaccines (1 of 3 - 3-dose series) Hepatitis B Vaccines (1 of 3 - 3-dose series) [facility] Start: 1986 HIV screening HIV Screening [facility] Start: 1986 Lipid panel Lipid Panel [facility] Immunizations Immunization Date Immunization Notes Care Provider Fa pam 12-07-2014 tetanus toxoid, redu carl diphtheria toxoid, and acellular pertussis vaccine, adsorbed [facility] Provider [facility] Work Phone: Payers Date Payer Category Payer Self-pay 2022 Unknown [id number] 2021 [employer] Blue [employer] ld Managed Care [facility] [id number] 2021 Unknown [id number] 1985 Unknown [id number] 1985 Unknown [id number] Unknown [id number] Social History Date Type Detail Facility Start: 09-28-2014 End: 07-17-2024 Tobacco smoking status NHIS Never smoked tobacco [facility] Work Phone: Start: 12-07-2014 [facility] Start: 1985 Sex Assigned At Not on file [facility] Start: 12-03-2022 End: 07-17-2024 Tobacco use and exposure Smokeless tobacco non-user [facility] Start: 11-23-2022 End: 07-17-2024 Exposure to SARS-CoV-2 (event) Not sure [facility] Start: 04-24-2023 End: 07-17-2024 Alcohol intake Current drinker of alcohol (finding) [facility] Work Phone: Start: 04-24-2023 End: 07-17-2024 Alcohol intake [facility] Work Phone: Start: 07-17-2024 [facility]: NEGATED: Highlighted rowStart: NINF History of tobacco use Passive smoker [facility] Work Phone: Clinical Notes 12-19-2022 to 07-17-2024 Bozena Heath, DO - 07/17/2024 8:30 AM ESTPatient InstructionsAssessment & Plan Note - Carol Mustafa - 04/24/2023 9:05 AM EDTSemely Heath, DO - 04/24/2023 8:20 AM EDT Note Date & Type Note Facility 07-17-2024 History of Presen t illness Narrative Subjective Patient ID: Dashawn Olson is a 39 y.o. male who presents for Annual Exam (Declines the flu shot /No issues concerns or complaints /ABN signed and brochure given to pt ). HPI Wellness No complaints Grandfather prostate cancer in 70's Mom's dad from [place] No [place] - about once daily 1 glass No processed/ snack type food Declines vaccines Does lots of manual type work Hx low back pain - under rn care transition for the last year Doing exercises and stretches No stiffness/ gelling Utd dentist, vision Feels well Review of Systems Objective BP 108/65 (BP Location: Right arm, Patient Position: Sitting, BP Cuff Size: Adult) Pulse 70 Temp 36.4 C (97.6 F) (Temporal) Resp 16 Ht 1.791 m (5' 10.5) Wt 93.3 kg (205 lb 11.2 oz) SpO2 98% BMI 29.10 kg/m Physical Exam Constitutional: General: He is not in acute distress. Appearance: Normal appearance. Cardiovascular: Rate and Rhythm: Normal rate and regular rhythm. Heart sounds: Normal heart sounds. Pulmonary: Effort: Pulmonary effort is normal. Breath sounds: Normal breath sounds. No wheezing, rhonchi or rales. Abdominal: Palpations: Abdomen is soft. Tenderness: There is no abdominal tenderness. There is no guarding or rebound. Musculoskeletal: Right lower leg: No edema. Left lower leg: No edema. Neurological: Mental Status: He is alert. Psychiatric: Mood and Affect: Mood normal. Assessment/Plan Diagnoses and all orders for this visit: Healthcare maintenance - Lipid Panel; Future - CBC; Future - Comprehensive Metabolic Panel; Future Chronic low back pain, unspecified back pain laterality, unspecified whether sciatica present Lifestyle recommendations for overall wellness, as you are interested or able - We recommend limitation of refined carbohydrates such as pasta, pretzels, chips, breads, bagels or cereals- particularly white flour containing. Limit sugar sweetened foods or beverages, alcohol, pastries, candy, sports drinks or sodas. (Water is best.) Minimize diet drinks with artificial sugars. If craving a sweetened food or beverage, two sweeteners from natural sources without substantial calories or glucose-raising properties are monk fruit extract or stevia. Shoot for drinking 64 oz water daily unless conditions such as heart failure limit your recommended intake (Ask your doctor if you're not sure.) Whole grain foods can be part of a healthy diet, and include such things as steel cut oats, brown rice, quinoa, millet, Charles or other sprouted breads (often found in the freezer section), amaranth, teff, farrow., etc. Wheat/buckwheat/spelt can be added if you are not gluten-sensitive, and if these foods don't cause you bloating or symptoms of inflammation. We do recommend eating lots of vegetables- 5 -7 servings of veggies daily, which is good fiber source as well as vitamins and minerals. (Think egg bake with spinach, peppers, onions, for breakfast, celery with nut butter, or hummus and cucumbers as snacks, salads with lunch and/or dinner, 1 - 2 veggies with lunch and or dinner, etc) Eat lean proteins -shoot for 70 - 100 g of protein per day unless you have restrictions from kidney disease, etc. Think hard boiled eggs, beans, seeds/lentils, cottage cheese, consider protein powder such as whey or pea powder in steel cut oats or a homemade smoothie. Eat some healthy fat daily, such as a handful of almonds, walnuts, pumpkin seeds, a serving of salmon, a splash of olive oil on your salad, an avocado. Healthy nutritional choices decrease conditions like elevated cholesterol, elevated sugars, elevated weight, elevated blood pressure, and elevated inflammation. Healthy choices can also lower risk of events such as strokes, heart attacks, and cancer. Make most of your food intake plant- based. Have occasional treats if you like, but try not to overindulge. Some sort of heart-rate increasing movement or exercise is recommended 4 - 6 days per week, even if in 5 or 10 min increments several times throughout the day. Include within that exercise time some strength/ resistance exercises at least 3 days per week. This can be through use of resistance bands, free weights, machines, body weight lifting, heavy outdoor chores such as yardwork, mulching, chopping wood, etc. Stretching/range of motion exercises should also be included as part of your exercise time - such as yoga, jemima chi, or even just post- exercise stretching. Moving exercised muscles beyond day to day usual activities can help you stay limber and flexible, decrease injury risk, and minimize aches and pains with everyday movements. Either in combination with exercise or just as a self-care quiet practice, spending time in nature has a wide range of positive effects on your health and wellbeing, including improved mood, improved blood pressure, and improved immune function. Even 10 - 20 minutes a few days per week can make a difference. Consider visiting [email or web address] This site is a new partnership between [facility] and local physicians to include a prescription for nature as part of your self-care and wellness. Healthy sleep ( 6 - 8 hours if possible) and involvement in community (neighbors, family, senior center, hobby groups, zuhair based realationships, etc) are also important parts of overall well being. Pick one or two things to focus on per week or month and start building on your wellness promoting activities. You deserve it! Core muscle exercises Range of motion/ yoga type stretches most days of the week Creatine 4 - 5 g daily! Vit D3 1000 international units daily Labs someday fasting Follow up [address] taveras documented in this encounter [facility] Work Phone: 07-17-2024 Instructions Bozena Heath DO - 07/17/2024 8:30 AM EST Lifestyle recommendations for overall wellness, as you are interested or able - We recommend limitation of refined carbohydrates such as pasta, pretzels, chips, breads, bagels or cereals- particularly white flour containing. Limit sugar sweetened foods or beverages, alcohol, pastries, candy, sports drinks or sodas. (Water is best.) Minimize diet drinks with artificial sugars. If craving a sweetened food or beverage, two sweeteners from natural sources without substantial calories or glucose-raising properties are monk fruit extract or stevia. Shoot for drinking 64 oz water daily unless conditions such as heart failure limit your recommended intake (Ask your doctor if you're not sure.) Whole grain foods can be part of a healthy diet, and include such things as steel cut oats, brown rice, quinoa, millet, Charles or other sprouted breads (often found in the freezer section), amaranth, teff, farrow., etc. Wheat/buckwheat/spelt can be added if you are not gluten-sensitive, and if these foods don't cause you bloating or symptoms of inflammation. We do recommend eating lots of vegetables- 5 -7 servings of veggies daily, which is good fiber source as well as vitamins and minerals. (Think egg bake with spinach, peppers, onions, for breakfast, celery with nut butter, or hummus and cucumbers as snacks, salads with lunch and/or dinner, 1 - 2 veggies with lunch and or dinner, etc) Eat lean proteins -shoot for 70 - 100 g of protein per day unless you have restrictions from kidney disease, etc. Think hard boiled eggs, beans, seeds/lentils, cottage cheese, consider protein powder such as whey or pea powder in steel cut oats or a homemade smoothie. Eat some healthy fat daily, such as a handful of almonds, walnuts, pumpkin seeds, a serving of salmon, a splash of olive oil on your salad, an avocado. Healthy nutritional choices decrease conditions like elevated cholesterol, elevated sugars, elevated weight, elevated blood pressure, and elevated inflammation. Healthy choices can also lower risk of events such as strokes, heart attacks, and cancer. Make most of your food intake plant- based. Have occasional treats if you like, but try not to overindulge. Some sort of heart-rate increasing movement or exercise is recommended 4 - 6 days per week, even if in 5 or 10 min increments several times throughout the day. Include within that exercise time some strength/ resistance exercises at least 3 days per week. This can be through use of resistance bands, free weights, machines, body weight lifting, heavy outdoor chores such as yardwork, mulching, chopping wood, etc. Stretching/range of motion exercises should also be included as part of your exercise time - such as yoga, jemima chi, or even just post- exercise stretching. Moving exercised muscles beyond day to day usual activities can help you stay limber and flexible, decrease injury risk, and minimize aches and pains with everyday movements. Either in combination with exercise or just as a self-care quiet practice, spending time in nature has a wide range of positive effects on your health and wellbeing, including improved mood, improved blood pressure, and improved immune function. Even 10 - 20 minutes a few days per week can make a difference. Consider visiting [email or web address] This site is a new partnership between [facility] and local physicians to include a prescription for nature as part of your self-care and wellness. Healthy sleep ( 6 - 8 hours if possible) and involvement in community (neighbors, family, senior center, hobby groups, zuhair based realationships, etc) are also important parts of overall well being. Pick one or two things to focus on per week or month and start building on your wellness promoting activities. You deserve it! Core muscle exercises Range of motion/ yoga type stretches most days of the week Creatine 4 - 5 g daily! Vit D3 1000 international units daily Labs someday fasting Follow up [address] taveras documented in this encounter [facility] Work Phone: 04-24-2023 Evaluation + Plan note Associated Problem(s): Healthcare maintenance Vaccines and screenings reviewed. Questionnaires completed. Health and wellness topics reviewed. Diet and exercise recommendations revisited. Routine blood work ordered today. Flu vaccine recommended, defers today, can get at pharmacy. Covid vaccine recommended, can get at pharmacy. TDAP is up to date until 2024. Shingrix vaccine recommended for ages 50+. Colon cancer screening recommended starting at age 45. PSA for prostate cancer screening not recommended until age 50. LIFESTYLE MEASURES -make sure you are avoiding refined carbs such as breads, pasta, cereal, candy, soda, nutrition bars, granola, chips, and sugar sweetened beverages. -eat 5- 7 servings daily of veggies, healthy protein such as chicken, fish, beans, and eggs, and include healthy fats in your diet such as seeds, nuts, olive oil, avocados, and salmon. -exercise 4 - 6 days per week as you are able, 150 minutes total weekly divided up is recommended. -Vitamin D is recommended at 1000 - 5000 IU international units daily. -Always wear sunscreen when you have sun exposure. -64 oz of water is recommended daily. -Dental visits recommended every 6 months. -Eye exam recommended every 2 years, for those with vision problems every year. [facility] Work Phone: 04-24-2023 Miscellaneous Notes Associated Problem(s): Healthcare maintenance Vaccines and screenings reviewed. Questionnaires completed. Health and wellness topics reviewed. Diet and exercise recommendations revisited. Routine blood work ordered today. Flu vaccine recommended, defers today, can get at pharmacy. Covid vaccine recommended, can get at pharmacy. TDAP is up to date until 2024. Shingrix vaccine recommended for ages 50+. Colon cancer screening recommended starting at age 45. PSA for prostate cancer screening not recommended until age 50. LIFESTYLE MEASURES -make sure you are avoiding refined carbs such as breads, pasta, cereal, candy, soda, nutrition bars, granola, chips, and sugar sweetened beverages. -eat 5- 7 servings daily of veggies, healthy protein such as chicken, fish, beans, and eggs, and include healthy fats in your diet such as seeds, nuts, olive oil, avocados, and salmon. -exercise 4 - 6 days per week as you are able, 150 minutes total weekly divided up is recommended. -Vitamin D is recommended at 1000 - 5000 IU international units daily. -Always wear sunscreen when you have sun exposure. -64 oz of water is recommended daily. -Dental visits recommended every 6 months. -Eye exam recommended every 2 years, for those with vision problems every year. 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 Allergy treatment recommended below. Patient advised that would recommend conservative treatment at this time, tubes are a last resort if needed. 1. Start OTC Flonase sensimist 1 squirt each nostril twice daily 2. Consider using Navage or Netipot to irrigate sinuses after possible exposures. 3. If no relief with above can add in an antihistamine such as Claritin or Kate which can help quiet underlying swelling. EUSTACHIAN TUBE DISORDER Symptoms described are consistent with Eustachian tube disorder. This is an impairment in the function of the ventilation tube which connects the middle ear ( behind the eardrum) to the back of the throat. The opening of this ventilation tube, which allows the middle ear to drain fluid and to ventilate air freely, can sometimes become inflamed and does not function properly. This can be caused by many problems, such as allergies, irritants such as smoke or dust, infections such as colds, ear infections, or sinusitis, swelling for other reason such as acid reflux, or mechanical blockage with things such as polyps or other growths. The symptoms of Eustachian tube dysfunction include ear fullness, pressure, whooshing or popping noises, difficulty with hearing, or pain-similar to changing altitude in an airplane. To minimize these symptoms, we look to treat the underlying cause of poor ventilation. Swelling related to allergies or inflammation can sometimes be helped by nasal steroid sprays such as Flonase or Nasacort over time (7 - 10 days) If you do not have high blood pressure or any other contraindication, you can use a nasal spray decongestant for up to 3 days. These are sprays such as Vicks or Afrin spray decongestants. Other options to help open up nasal passages and Eustachian tubes can include non-medicine intervention such as steam, essential oils such as Eucalyptus, peppermint, joanna added to a diffuser or humidifier. Mobilizing fluid and helping with congestion through repetitive exercise such as rebounding on a mini- trampoline, jumping jacks, or running may all help. If you have allergies, adding in an antihistamine such as Claritin or Kate can help quiet underlying swelling. If you have a cold or sinus infection, after the infection begins to clear, the symptoms should improve on their own. The Lisa technique can be used, which is a Osteopathic manual medicine technique to help with ear fullness. Perform by pulling up and back on your ear- use a firm steady force and pull your ear up and back, until you feel a deep tug at the base of your ear. At the same time, use your other hand to pull the angle of your jaw (the same side of the face as the ear you are tugging) in the opposite direction - pull and massage the jaw area forward and down, away from your ear, thus stretching out the deep tissues that surround the Eustachian tube. As a last resort for stubborn Eustachian tube dysfunction, we will occasionally use a very short course of prednisone or a trial of antibiotics if there are associated infectious symptoms. Call the office back if the above measures do not help, and we can discuss next steps. 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 Allergy treatment recommended below. Patient advised that would recommend conservative treatment at this time, tubes are a last resort if needed. 1. Start OTC Flonase sensimist 1 squirt each nostril twice daily 2. Consider using Navage or Netipot to irrigate sinuses after possible exposures. 3. If no relief with above can add in an antihistamine such as Claritin or Kate which can help quiet underlying swelling. EUSTACHIAN TUBE DISORDER Symptoms described are consistent with Eustachian tube disorder. This is an impairment in the function of the ventilation tube which connects the middle ear ( behind the eardrum) to the back of the throat. The opening of this ventilation tube, which allows the middle ear to drain fluid and to ventilate air freely, can sometimes become inflamed and does not function properly. This can be caused by many problems, such as allergies, irritants such as smoke or dust, infections such as colds, ear infections, or sinusitis, swelling for other reason such as acid reflux, or mechanical blockage with things such as polyps or other growths. The symptoms of Eustachian tube dysfunction include ear fullness, pressure, whooshing or popping noises, difficulty with hearing, or pain-similar to changing altitude in an airplane. To minimize these symptoms, we look to treat the underlying cause of poor ventilation. Swelling related to allergies or inflammation can sometimes be helped by nasal steroid sprays such as Flonase or Nasacort over time (7 - 10 days) If you do not have high blood pressure or any other contraindication, you can use a nasal spray decongestant for up to 3 days. These are sprays such as Vicks or Afrin spray decongestants. Other options to help open up nasal passages and Eustachian tubes can include non-medicine intervention such as steam, essential oils such as Eucalyptus, peppermint, joanna added to a diffuser or humidifier. Mobilizing fluid and helping with congestion through repetitive exercise such as rebounding on a mini- trampoline, jumping jacks, or running may all help. If you have allergies, adding in an antihistamine such as Claritin or Kate can help quiet underlying swelling. If you have a cold or sinus infection, after the infection begins to clear, the symptoms should improve on their own. The Lisa technique can be used, which is a Osteopathic manual medicine technique to help with ear fullness. Perform by pulling up and back on your ear- use a firm steady force and pull your ear up and back, until you feel a deep tug at the base of your ear. At the same time, use your other hand to pull the angle of your jaw (the same side of the face as the ear you are tugging) in the opposite direction - pull and massage the jaw area forward and down, away from your ear, thus stretching out the deep tissues that surround the Eustachian tube. As a last resort for stubborn Eustachian tube dysfunction, we will occasionally use a very short course of prednisone or a trial of antibiotics if there are associated infectious symptoms. Call the office back if the above measures do not help, and we can discuss next steps. [facility] Work Phone: 04-24-2023 History of Presen t illness Narrative Subjective Patient ID: Dashawn Olson is a 38 y.o. male who presents for New Patient Visit (Pt presents as a new pt to [facility] care- pt states that when he swallows his ears crackle- states that this has been going on for a few years ) and Annual Exam (Pt presents as a new pt for physical- ABN given to pt and signed, pt verbalized understanding. ). HPI NPV - NEW PATIENT VISIT Patient is here for establishment of care + physical. Patient states he is doing well overall. He does have some lumbar back pain. Follows with sports med/ortho @ [facility] for back issues. Has had imaging (both x-rays and MRI), PT, and now going to have injections. Was told in 2014 that he had fracture but no evidence on recent imaging done in 2022. He would like his ears checked today. Reports crackles in his hears when swallowing ongoing for years. States does occasionally have secretions based on job exposures. No fevers, no chills, no cough, no sneezing. No history of allergies, eczema. Even as a child. No throat clearing, no reflux symptoms. 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 Alcohol use: sometimes, about 7 beverages per week Smoking: non-smoker Patient declines influenza vaccine. FMHx: Mayra. Grandfather with PA in 60s (he was a smoker) Prostate cancer screening: Denies family history in first degree relative. Denies hesitancy, nocturia, or urgency. Colon cancer screening: Denies family history in first degree relative. Denies melena, hematochezia, constipation, diarrhea, bloating, change in bowel habits. Review of Systems All other systems reviewed and are negative. Objective BP 123/75 (BP Location: Left arm, Patient Position: Sitting, BP Cuff Size: Small adult) Pulse 72 Temp 36.4 C (97.6 F) (Temporal) Resp 14 Ht 1.791 m (5' 10.5) Wt 85 kg (187 lb 6.4 oz) SpO2 97% BMI 26.51 kg/m Physical Exam Vitals and nursing note reviewed. Constitutional: General: He is not in acute distress. Appearance: Normal appearance. He is not toxic-appearing. HENT: Head: Normocephalic and atraumatic. Left Ear: Tympanic membrane is retracted. Ears: Comments: Small amount of turbid fluid with air fluid level visible on right Nose: Right Turbinates: Swollen and pale. Left Turbinates: Swollen and pale. Mouth/Throat: Lips: Crowder. Mouth: Mucous membranes are moist. Eyes: Extraocular Movements: Extraocular movements intact. Pupils: Pupils are equal, round, and reactive to light. Neck: Thyroid: No thyromegaly. Cardiovascular: Rate and Rhythm: Normal rate and regular rhythm. Heart sounds: No murmur heard. No friction rub. No gallop. Pulmonary: Effort: Pulmonary effort is normal. Breath sounds: Normal breath sounds. No wheezing, rhonchi or rales. Abdominal: General: Bowel sounds are normal. There is no distension. Palpations: Abdomen is soft. There is no mass. Tenderness: There is no abdominal tenderness. There is no guarding. Musculoskeletal: Right lower leg: No edema. Left lower leg: No edema. Comments: Slightly exaggerated kyphosis with natural posture, able to correct. Lymphadenopathy: Cervical: No cervical adenopathy. Skin: General: Skin is warm and dry. Neurological: General: No focal deficit present. Mental Status: He is alert and oriented to person, place, and time. Psychiatric: Mood and Affect: Mood normal. Behavior: Behavior normal. Assessment/Plan Problem List Items Addressed This Visit ICD-10-CM Dysfunction of eustachian tube H69.90 Suspect related to possible underlying allergies, exposures to things in yard/paint with his job. Allergy treatment recommended below. Patient advised that would recommend conservative treatment at this time, tubes are a last resort if needed. 1. Start OTC Flonase sensimist 1 squirt each nostril twice daily 2. Consider using Navage or Netipot to irrigate sinuses after possible exposures. 3. If no relief with above can add in an antihistamine such as Claritin or Kate which can help quiet underlying swelling. EUSTACHIAN TUBE DISORDER Symptoms described are consistent with Eustachian tube disorder. This is an impairment in the function of the ventilation tube which connects the middle ear ( behind the eardrum) to the back of the throat. The opening of this ventilation tube, which allows the middle ear to drain fluid and to ventilate air freely, can sometimes become inflamed and does not function properly. This can be caused by many problems, such as allergies, irritants such as smoke or dust, infections such as colds, ear infections, or sinusitis, swelling for other reason such as acid reflux, or mechanical blockage with things such as polyps or other growths. The symptoms of Eustachian tube dysfunction include ear fullness, pressure, whooshing or popping noises, difficulty with hearing, or pain-similar to changing altitude in an airplane. To minimize these symptoms, we look to treat the underlying cause of poor ventilation. Swelling related to allergies or inflammation can sometimes be helped by nasal steroid sprays such as Flonase or Nasacort over time (7 - 10 days) If you do not have high blood pressure or any other contraindication, you can use a nasal spray decongestant for up to 3 days. These are sprays such as Vicks or Afrin spray decongestants. Other options to help open up nasal passages and Eustachian tubes can include non-medicine intervention such as steam, essential oils such as Eucalyptus, peppermint, joanna added to a diffuser or humidifier. Mobilizing fluid and helping with congestion through repetitive exercise such as rebounding on a mini- trampoline, jumping jacks, or running may all help. If you have allergies, adding in an antihistamine such as Claritin or Kate can help quiet underlying swelling. If you have a cold or sinus infection, after the infection begins to clear, the symptoms should improve on their own. The Lisa technique can be used, which is a Osteopathic manual medicine technique to help with ear fullness. Perform by pulling up and back on your ear- use a firm steady force and pull your ear up and back, until you feel a deep tug at the base of your ear. At the same time, use your other hand to pull the angle of your jaw (the same side of the face as the ear you are tugging) in the opposite direction - pull and massage the jaw area forward and down, away from your ear, thus stretching out the deep tissues that surround the Eustachian tube. As a last resort for stubborn Eustachian tube dysfunction, we will occasionally use a very short course of prednisone or a trial of antibiotics if there are associated infectious symptoms. Call the office back if the above measures do not help, and we can discuss next steps. Healthcare maintenance Z00.00 Vaccines and screenings reviewed. Questionnaires completed. Health and wellness topics reviewed. Diet and exercise recommendations revisited. Routine blood work ordered today. Flu vaccine recommended, defers today, can get at pharmacy. Covid vaccine recommended, can get at pharmacy. TDAP is up to date until 2024. Shingrix vaccine recommended for ages 50+. Colon cancer screening recommended starting at age 45. PSA for prostate cancer screening not recommended until age 50. LIFESTYLE MEASURES -make sure you are avoiding refined carbs such as breads, pasta, cereal, candy, soda, nutrition bars, granola, chips, and sugar sweetened beverages. -eat 5- 7 servings daily of veggies, healthy protein such as chicken, fish, beans, and eggs, and include healthy fats in your diet such as seeds, nuts, olive oil, avocados, and salmon. -exercise 4 - 6 days per week as you are able, 150 minutes total weekly divided up is recommended. -Vitamin D is recommended at 1000 - 5000 IU international units daily. -Always wear sunscreen when you have sun exposure. -64 oz of water is recommended daily. -Dental visits recommended every 6 months. -Eye exam recommended every 2 years, for those with vision problems every year. Relevant Orders CBC Comprehensive Metabolic Panel Lipid Panel Other Visit Diagnoses Codes Encounter to establish care - Primary Z76.89 Overweight with body mass index (BMI) of 26 to 26.9 in adult E66.3, Z68.26 Follow-up in 1 year for annual physical. Call for sooner follow-up if needed. Scribe Attestation By signing my name below, I, Carol Mustafa, Kourtney attest that this documentation has been prepared under the direction and in the presence of Bozena Heath DO. documented in this encounter [facility] Work Phone: 12-23-2022 Telephone encounter Note Called and spoke with the patient directly. I told him Dr. Haddad is unable to order a MRI at this time because he knows it would not be approved without him completing the 6 weeks of therapy. He said even though it has been going on since May. I told him insurance go a length of conservative treatment not length the symptoms. Patient understood. [facility] 12-23-2022 Miscellaneous Notes Called and spoke with the patient directly. I told him Dr. Haddad is unable to order a MRI at this time because he knows it would not be approved without him completing the 6 weeks of therapy. He said even though it has been going on since May. I told him insurance go a length of conservative treatment not length the symptoms. Patient understood. Agree, insurances recently have been getting harder and harder to get them to authorize the MRI. Nerve root weakness and tumor are about the only exceptions. Continue with PT plan. Called and spoke with the patient directly. He states he has increase in low back pain with therapy, I did confirm that he has completed 4 sessions of therapy. I told him that most insurances require 6 weeks of therapy prior to ordering an MRI. He wants Dr. Haddad to order the MRI anyways because he is in so much pain. I told him there is a good the MRI will be denial due to lack of therapy. The patient understood. I told him Dr. Haddad is out of the office for the rest of today. Pt calling due to pain worsening despite going to PT. His PT recommended he may need further imaging. Please advise. documented in this encounter [employer] 12-20-2022 Telephone encounter Note Agree, insurances recently have been getting harder and harder to get them to authorize the MRI. Nerve root weakness and tumor are about the only exceptions. [facility] plan[facility]20[facility]22 Miscellaneous Notes Agree, insurances recently have been getting harder and harder to get them to authorize the MRI. Nerve root weakness and tumor are about the only exceptions. Continue with PT plan. Called and spoke with the patient directly. He states he has increase in low back pain with therapy, I did confirm that he has completed 4 sessions of therapy. I told him that most insurances require 6 weeks of therapy prior to ordering an MRI. He wants Dr. Haddad to order the MRI anyways because he is in so much pain. I told him there is a good the MRI will be denial due to lack of therapy. The patient understood. I told him Dr. Haddad is out of the office for the rest of today. Pt calling due to pain worsening despite going to PT. His PT recommended he may need further imaging. Please advise. documented in this encounter [facility] 12-19-2022 Telephone encounter Note Called and spoke with the patient directly. He states he has increase in low back pain with therapy, I did confirm that he has completed 4 sessions of therapy. I told him that most insurances require 6 weeks of therapy prior to ordering an MRI. He wants Dr. Haddad to order the MRI anyways because he is in so much pain. I told him there is a good the MRI will be denial due to lack of therapy. The patient understood. I told him Dr. Haddad is out of the office for the rest of today. [facility] 12-19-2022 Telephone encounter Note Pt calling due to pain worsening despite going to PT. His PT recommended he may need further imaging. Please advise. [facility] Evaluation note Diagnosis Encounter to establish care- Primary Healthcare maintenance Overweight with body mass index (BMI) of 26 to 26.9 in adult Dysfunction of Eustachian tube, unspecified laterality documented in this encounter [facility] Work Phone: Evaluation note* Diagnosis Encounter to establish care- Primary Healthcare maintenance Overweight with body mass index (BMI) of 26 to 26.9 in adult Dysfunction of Eustachian tube, unspecified laterality Healthcare maintenance- Primary Chronic low back pain, unspecified back pain laterality, unspecified whether sciatica present documented in this encounter [facility] Work Phone: Summary Purpose Family History No Family History Records FoundNo Family History Records FoundNo Family History Records FoundNo Family History Records FoundNo Family History Records Found Advance Directives No Advanced Directives Records FoundNo Advanced Directives Records FoundNo Advanced Directives Records FoundNo Advanced Directives Records FoundNo Advanced Directives Records Found Additional Source Comments Source Comments (unrecognize d section and content) In the event this informatio n is protected by the Federal Confidentiality of Alcohol and Drug Abuse Patient Records regulations: The Federal rules restrict any use of the information to criminally investigate or prosecute any alcohol or drug abuse patient.[facility] Reason for Visit (unrecogniz ed section and content) Reason Onset Date Comments Back Pain 12/19/2022 Radiates BL LE's Reason Comments New Patient Visit Pt presents as a new pt to est care- pt states that when he swallows his ears crackle- states that this has been going on for a few years Annual Exam Pt presents as a new pt for physical- ABN given to pt and signed, pt verbalized understanding. Reason Comments Annual Exam Declines the flu chelo t No issues concerns or complaints ABN signed and brochure given to pt Care Teams (unrecognized sec tion and content) [employer] Relationship Specialty Start Date End Date Leroy Tejeda [address] [place] [address] PCP - General 06/06/14 [employer] Relationship Specialty Start Date End Date Leroy Tejeda [address] [place] [address] PCP - General 06/06/14 [employer] Relationship Specialty Start Date End Date Bozena Heath DO [address] [facility] [place] [address] PCP - General Family Medicine 01/01/23 [employer] Relationship Specialty Start Date End Date Bozena Heath DO [address] [facility] [place] [address] PCP - General Family Medicine 01/01/23 (unrecognized sect ion and content) No Status Records FoundNo Status Records FoundNo Status Records FoundNo Status Records FoundNo Status Records Found INFORMATION SOURCE (unrecogn ized section and content) DATE CREATED AUTHOR 12/31/2022 [facility] DATE CREATED AUTHOR AUTHOR'S ORGANIZ ATION 12/31/2022 [facility] DATE CREATED AUTHOR AUTHOR'S ORGANIZ ATION 01/09/2023 [facility] DATE CREATED AUTHOR AUTHOR'S ORGANIZ ATION 05/01/[address] [facility] DATE CREATED AUTHOR AUTHOR'S ORGANIZ ATION 07/22/2024 [facility] FOR RECORDS PERTAINING TO PATIENTS WHO ARE OR HAVE BEEN ENROLLED IN A CHEMICAL DEPENDENCY/SUBSTANCEABUSE PROGRAM, SOME INFORMATION MAY BE OMITTED. This clinical summary was aggregated from multiple sources. Caution should be exercised in using it in the provision of clinical care. This summary normalizes information from multiple sources, and as a consequence, information in this document may materially change the coding, format and clinical context of patient data. In addition, data may be omitted in some cases. CLINICAL DECISIONS SHOULD BE BASED ON THE PRIMARY CLINICAL RECORDS. [employer] provides no warranty or guarantee of the accuracy or completeness of information in this document.
[2024-12-23 23:54] LABS: Cholesterol 181 mg/dL (<=200); High Density Lipoprotein 68 mg/dL; Low Density Lipoprotein Calc. 102 mg/dL; Triglycerides 54 mg/dL; Very Low Density Lipoprotein 11 mg/dL (5-40); cholesterol:hdl ratio screen 2.66
[2024-12-24 00:01] LABS: Absolute Neutrophil Count 3.1 X10^3/uL (2.0-7.7); Basophil# 0.05 X10^3/uL; Basophil% 0.8 % (0-1); Eosinophil# 0.11 X10^3/uL; Eosinophils% 1.8 % (0-5); Hematocrit 43.3 % (40-54); Hemoglobin 14.8 g/dL (13.0-16.5); Lymphocyte % 33.4 % (19-41); Mean Corp Hgb Conc 34.2 g/dL (32-36); Mean Corpuscular Hgb 30.5 pg (27.0-32.0); Mean Corpuscular Volume 89.1 fL (80-94); Mean Platelet Vol. 9.9 fl (6.2-12.0); Monocyte# 0.68 X10^3/uL; Monocyte% 11.4 % (0-10); NRBC Flagged by Analyzer 0 % (0-5); Neutrophil # 3.14 X10^3/uL (2.7-7.7); Neutrophil % 52.4 % (47-70); Platelet Count 258 K/mm3 (150-450); RBC Distribution Width CV 12.1 % (11.6-14.6); RBC Distribution Width SD 39.7 fl (35.1-43.9); Red Blood Count 4.86 M/mm3 (4.6-6.2)
[2024-12-24 00:05] LABS: ALB/GLOB Ratio 0.8 RATIO (0.9-2.4); AST(SGOT) 22 U/L (<=37); Alanine Aminotransfer ALT/SGPT 16 U/L (<=46); Albumin, Serum 3.1 g/dL (3.5-5.0); Alkaline Phosphatase 70 U/L (40-129); Anion Gap 13 (5-15); BUN 24 mg/dL (4-19); BUN/Creat Ratio 26.8 RATIO (10-20); Calcium,Total 8.9 mg/dL (7.6-11.0); Carbon Dioxide 23.2 mmol/L (21.0-32.0); Chloride 101 mmol/L (98-108); Creatinine, Serum 0.88 mg/dL (0.70-1.20); EST Glomerular Filtration Rate 113 (>60); Globulin 4.1 g/dL (2.2-4.2); Glucose 122 mg/dL (70-99); Potassium 3.9 mmol/L (3.3-5.1); Protein, Total 7.2 g/dL (5.9-8.4); Sodium Level 137 mmol/L (133-145); Total Bilirubin 0.26 mg/dL (0.00-1.30)
== END | disposition home or self-care (01) ==
PROVIDERS: Referring Provider Nurse Practitioner; Visit Provider Nurse Practitioner
DX: E78.5 Hyperlipidemia, unspecified (principal); R73.9 Hyperglycemia, unspecified
CPT/HCPCS: 80053; 80061; 85025